=== PATIENT | male | born 1970 | race Caucasian/White ===

== ENCOUNTER 2016-07-16 12:30 | Day surgery (SDC) | payer OTHER ==
[~2016-07-16] VITALS: Ht 180.3 cm; Wt 90.0 kg
[~2016-07-16 12:30] MED LIST: 0.9% Sodium Chloride 1,000 ML IV SCH; METO25TA6 PO; OMEP20CA11 PO; RNT300T PO; Sodium Chloride LOK Flush 10 mL Syringe IV PRN; fentaNYL-PF 50 mCg/mL 2 mL Inj IVPUSH PRN
[2016-07-16 13:36] VITALS: BP 129/86; PULSE 60; RESP 14; O2SAT 100
[2016-07-16 14:20] VITALS: BP 110/78; PULSE 51; RESP 16; O2SAT 95
[2016-07-16 14:30] VITALS: BP 114/69; PULSE 54; RESP 16; O2SAT 95
[2016-07-16 14:40] VITALS: BP 111/77; PULSE 59; RESP 16; O2SAT 98
--- NOTE | 2016-07-17 03:59 | ENDO ---
[address] [address] ENDOSCOPY PROCEDURE PATIENT: LOTTIE NAYLOR : 1970 MR#: [id number] ADMIT: 07/16/2016 JOB ID: [id number] DATE OF SERVICE: 07/16/2016 OPERATION: Esophagogastroduodenoscopy with biopsy. PREOPERATIVE DIAGNOSIS: . POSTOPERATIVE DIAGNOSIS: Normal upper endoscopy. ANESTHESIA: 1. Fentanyl 100 mcg. 2. Versed 5 mg IV administered. COMPLICATIONS: None. BLOOD LOSS: Minimal. DESCRIPTION OF PROCEDURE: After risks and benefits explained to the patient, informed consent was obtained. After anesthesia administered, the upper endoscope was inserted into the mouth, intubating to the esophagus. Stomach, second portion of duodenum and the mucosa carefully examined. After procedure was done, the scope withdrawn and procedure terminated. FINDINGS: Upon inspection of the esophagus, the esophagus was normal without masses, ulcers or lesions. Z-line located 40 cm from incisors. Upon entering stomach, the stomach was normal without masses, ulcers or lesions. Retroflexion was normal. Duodenal bulb, first and second portion were normal. Biopsies taken of the antrum, body and distal esophagus. IMPRESSION: Normal upper endoscopy, status post biopsy. RECOMMENDATION: Await pathology results. Follow up in GI clinic as needed.
--- NOTE | 2016-07-20 11:16 | PATH ---
SURGICAL PATHOLOGY Attending Physician:Davonte Valdes MD CASE STATUS: Signed Out PATIENT NAME: LOTITE NAYLOR JR PID: [id number] : 1970 DATE COLLECTED:07/16/2016 00:00 SPECIMEN: 1: Esophagus, Biopsy 2: Gastric, Biopsy 3: Stomach, Antrum, Biopsy CLINICAL HISTORY: CHEST PAIN 1). DISTAL ESOPHAGEAL BIOPSIES 2). GASTRIC BODY BIOPSIES 3). ANTRUM BIOPSIES FINAL DIAGNOSIS: 1.DISTAL ESOPHAGUS BIOPSIES: SQUAMOUS MUCOSA WITH NO DIAGNOSTIC ALTERATIONS. Negative for intestinal/Scott' s metaplasia. Negative for dysplasia and malignancy. 2.GASTRIC BODY BIOPSIES: BODY-TYPE MUCOSA WITH NO DIAGNOSTIC ALTERATIONS. Negative for Helicobacter organisms. Negative for intestinal metaplasia. Negative for dysplasia and malignancy. 3.ANTRUM BIOPSIES: ANTRAL MUCOSA WITH NO DIAGNOSTIC ALTERATIONS. Negative for Helicobacter organisms. Negative for intestinal metaplasia. Negative for dysplasia and malignancy. ICD10 code R07.9 GROSS DESCRIPTION: Received are three formalin-filled containers, each labeled with the patient' s name. 1. Received in formalin, labeled with the patient' s name and "1. Distal esoph BX", is one fragment of chiu, soft tissue measuring 0.1 x 0.1 x 0.1 cm. The fragment is totally submitted in cassette 1A. 2. Received in formalin, labeled with the patient' s name and "2. Gastric body BXs", are three fragments of chiu, soft tissue ranging in size from 0.1 x 0.1 x 0.1 cm to 0.2 x 0.1 x 0.1 cm. All fragments are totally submitted in cassette 2A. 3. Received in formalin, labeled with the patient' s name and "3. Antral BX 1", is one fragment of chiu, soft tissue measuring 0.3 x 0.3 x 0.2 cm. The fragment is totally submitted in cassette 3A. ([id number]) MICRO DESCRIPTION: See diagnosis. ICD-9 CODES: CPT CODES: 1: 66771 2: 78866 3: 36581 Electronically Signed Out Amarilis Rosario MD [facility] Pathology [facility] [address], [place] [address] Technical component performed at [facility], [facility] [address], [place], [address]
== END 2016-07-16 23:59 | disposition home or self-care (01) ==
LOC: END 12:30
PROVIDERS: ATTEND Internal Medicine Gastroenterology
DX: K21.9 Gastro-esophageal reflux disease without esophagitis (principal); I10 Essential (primary) hypertension; F41.9 Anxiety disorder, unspecified
CPT/HCPCS: 43239; G0500; J2250; J3010; J7030

== ENCOUNTER 2016-09-26 20:58 | Emergency (ER) | payer OTHER ==
[~2016-09-26] VITALS: Ht 177.8 cm; Wt 90.9 kg
[~2016-09-26 20:58] MED LIST changes: -0.9% Sodium Chloride 1,000 ML IV SCH; -Sodium Chloride LOK Flush 10 mL Syringe IV PRN; -fentaNYL-PF 50 mCg/mL 2 mL Inj IVPUSH PRN
[2016-09-26 21:05] VITALS: BP 134/92; PULSE 77; RESP 18; O2SAT 99
--- NOTE | 2016-09-26 21:26 | ED.REPORT ---
HPI-General Illness Date of Service Sep 26, 2016 ED Provider: Jules Pelletier MD Pt is a 45 y.o. male with a hx of HTN and GERD who presents to the ED c/o elevated blood pressure onset 4 days ago. He reports associated palpitations, paraesthesia in his bilateral lower extremities, headache behind his bilateral eyes describe as "blood pumping", and chest tightness. He denies chest pain, SOB , abdominal pain, dysuria, hematuria, hematochezia, diarrhea, constipation, and vision changes. Pt reports having palpitations for the last 4 days but that it became more noticeable tonight. Upon examination pt's headache and chest tightness has improved. He states that he currently taking 12.5 mg of metoprolol daily. Nursing Notes Stated Complaint: HIGH BLOOD PRESSURE, CHEST SPASMS Chief Complaint: Chest Pain Nursing Notes Reviewed: Yes Allergies: Coded Allergies: No Known Drug Allergies (Verified Allergy, Unknown, 09/26/16) Scheduled Metoprolol Tartrate (Metoprolol Tartrate) 25 Mg Tablet 12.5 MG PO DAILY Omeprazole (Omeprazole) 20 Mg Capsule.dr 20 MG PO BID Ranitidine (Zantac) 300 Mg Tablet 300 MG PO DAILY General Time Seen by MD: 21:23 Chief Complaint Other (Elevated blood pressure) Hx Obtained From: Patient Arrived By: Walk-in Sudden in Onset?: Yes Onset Occurred: 4 days ago Symptom Duration: Since onset Recent Healthcare: No recent doctor visit, No recent hospitalization Similar Sx Previous: No Past Medical History Past Medical History Reports: GERD, Hypertension Past Surgical History Knee Reports: Inguinal hernia repair Social History Alcohol Use: 1-3 per week Ambulatory Status Independent Review of Systems Elevated BP Paraesthesia bilateral lower extremities Chest tightness Full Review of Systems Eyes: Denies: Blurred bilateral Respiratory: Denies: Shortness of breath Cardiovascular: Reports: Palpitations, Denies: Chest pain GI: Denies: Abdominal pain, Constipation, Diarrhea, Hematemesis, Hematochezia Male: Denies Dysuria, Denies Hematuria Neurologic: Reports: Headache, Denies: Vision change Complete sys rev & neg: except as marked. Physical Exam Vital Signs Vital Signs Date Time Temp Pulse Resp B/P Pulse Ox O2 Delivery O2 Flow Rate FiO2 09/27/16 00:48 61 17 137/92 95 Room Air 09/26/16 21:05 36.4 77 18 134/92 99 Room Air Initial VS: Reviewed ENT: Mucous membranes moist Extremities: Vascular intact, Neuro intact Skin: Warm, Dry, No cyanosis Psychiatric: Mood/affect normal, Behavior normal, Normal thought content General/Constitutional: Awake, Alert, No acute distress, Well appearing, Well developed, Well hydrated, Well nourished, Not toxic appearing Head / Eyes: Atraumatic, Normocephalic, PERRL, EOMI, No nystagmus Respiratory / Chest: Atraumatic, Breath sounds = bilat, No respiratory distress , No chest tenderness Cardiovascular: Heart rate NL, Regular rhythm, Heart sounds NL, Cap refill not delayed, Peripheral circulation NL Abdomen: Atraumatic, Soft, Non-tender, No guarding, No rebound, No distention Neurologic: Oriented X3, Speech NL, No motor deficits, No sensory deficits, CN II - XII intact Normal finger to nose Interpretation & Diagnostics Lab Results Interpretation Result Diagram: 09/26/16213309/26/162133 Test 09/26/16 21:34 09/26/16 23:50 White Blood Count 6.5th/mm3 (3.8-10.1) Red Blood Count 4.64mil/mm3 (4.40-5.80) Hemoglobin 14.5g/dL (13.8-17.2) Hematocrit 41.6% (41.0-50.0) Mean Corpuscular Volume 89.7fL (81-100) Mean Corpuscular Hemoglobin 31.3pg (27.0-35.0) Mean Corpuscular Hemoglobin Concent 34.9% (32.0-37.0) Red Cell Distribution Width 12.8% (12.3-15.4) Platelet Count 181bil/L (150-400) Neutrophils (%) (Auto) 60.6% (40-74) Lymphocytes (%) (Auto) 29.0% (14-46) Monocytes (%) (Auto) 8.1% (4-12) Eosinophils (%) (Auto) 1.9% (0-5) Basophils (%) (Auto) 0.2% (0-3) Sodium Level 138mEq/L (134-144) Potassium Level 3.6mEq/L (3.5-5.2) Chloride Level 100mEq/L (97-108) Carbon Dioxide Level 24mmol/L (18-29) Blood Urea Nitrogen 15mg/dL (6-24) Creatinine 0.87mg/dL (0.76-1.27) Estimat Glomerular Filtration Rate 101mL/min (>59) Glucose Level 111mg/dL (60-99) Calcium Level 9.6mg/dL (8.5-10.1) Magnesium Level 2.0mg/dL (1.6-2.6) Total Bilirubin 0.3mg/dL (0.0-1.2) Aspartate Amino Transf (AST/SGOT) 15U/L (0-50) Alanine Aminotransferase (ALT/SGPT) 14U/L (0-44) Alkaline Phosphatase 54U/L (25-150) Total Protein 7.3g/dL (6.4-8.4) Albumin 4.5g/dL (3.4-5.0) Troponin T 0.010ug/L (0.0-0.011) ECG Interpretation Time: 21:16 Interpreted by: ED physician Normal ECG Interpretation: Normal ECG w/ rate of... (65), Normal rate, Normal sinus rhythm, No acute ischemic changes X-Ray Chest Interpretation Chest Xray Interpretation: IMPRESSION: Source of chest pain is not seen. Dictated by: Norberto Justin M.D. on 09/26/2016 at 21:42 Approved by: Norberto Justin M.D. on 09/26/2016 at 21:42 Re-Eval/Medical Decision Med Decision/Clinical Course In summary, 45 yo M presenting to the ED for evaluation after noting his blood pressure was higher than normal at home (as high as 150s/110s per home machine per his report) in the setting of headache and some spasms/palpitations in his chest. BPs here reassuring - no need for acute intervention. Labs and w/u w/o evidence of end organ damage. Normal neuro exam and gradual onset of GARCIA over several days, no vision changes - do not feel that CT necessary at this time and discussed this with patient. EKG and troponin grossly wnl. Reasonable to d/ c home w/ very careful return precautions, PCP f/u. Patient agreeable to plan, no further questions. Source of Hx: Old records Time of Eval: 22:39 Re-Evaluation/Progress Note: Discussed imaging and lab results. Time of Eval: 00:28 Re-Evaluation/Progress Note: Discussed repeat lab work and plan for discharge, pt understands and agrees with plan. Counseled Regarding: Diagnosis, Lab results, Need for follow-up, When/why to return to ED Discharge & Departure Primary Impression: Hypertension Hypertension type: unspecified secondary hypertension Qualified Code: I15.9 - Secondary hypertension, unspecified Additional Impression: Non-cardiac chest pain Disposition: Home Discharge Condition All VS Reviewed: Yes Condition: Improved Patient Instructions: Hypertension (ED), Noncardiac Chest Pain (ED) Additional Instructions: Thank you for entrusting us with your care today. You evaluation was reassuring and no serious cause for your hypertension was found today. I recommend you continue to take your medications as prescribed. Follow-up with your primary care provider, call Tuesday to schedule an appointment. Return Referrals: Luke Galvez MD (PCP) Scribe Attestation Portions of this note were transcribed by Eze Wang. I, Dr. Pelletier personally performed the history, physical exam and medical decision-making; I reviewed and confirmed the accuracy of the information in the transcribed note. Signed by: Eamon Amaro, 09/27/2016 and 0030. copies to: Luke Galvez MD, William B MD Sep 26, 2016 21:26 EZE WANG Sep 26, 2016 21:58
[2016-09-26 21:40] LABS: BASOPHILS % (AUTO) 0.2 % (0-3); EOSINOPHILS % (AUTO) 1.9 % (0-5); MONOCYTES % (AUTO) 8.1 % (4-12); Mean Corpuscular Hemoglobin 31.3 pg (27.0-35.0); Mean Corpuscular Volume 89.7 fL (81-100); NEUTROPHILS % (AUTO) 60.6 % (40-74); Platelet Count 181 bil/L (150-400)
--- NOTE | 2016-09-26 21:44 | DRSVH ---
PROCEDURE: X-RAY CHEST ONE VIEW, PORTABLE ([id number]) INDICATIONS: CHEST PAIN TECHNIQUE: One view of the chest was acquired. COMPARISON: None. FINDINGS: Surgical changes and devices: None. Lungs and pleura: No pleural effusions or pneumothorax. Lungs are clear. Mediastinum: Mediastinal contours appear normal. Heart size is normal. Bones and chest wall: No suspicious bony lesions. Overlying soft tissues appear unremarkable. IMPRESSION: Source of chest pain is not seen. Dictated by: Norberto Justin M.D. on 09/26/2016 at 21:42 Approved by: Norberto Justin M.D. on 09/26/2016 at 21:42
[2016-09-26 22:03] LABS: TROPONIN T 0.01 ug/L (0.0-0.011)
[2016-09-27 00:48] VITALS: BP 137/92; PULSE 61; RESP 17; O2SAT 95
== END 2016-09-27 00:49 | disposition home or self-care (01) ==
LOC: SED 20:58
DX: I15.9 Secondary hypertension, unspecified (principal); R07.89 Other chest pain; K21.9 Gastro-esophageal reflux disease without esophagitis; Z79.899 Other long term (current) drug therapy